=== PATIENT | male | born 1965 | race Caucasian/White ===

== ENCOUNTER 2019-08-31 15:37 | Emergency (ER) | payer BC, OTHER ==
--- NOTE | 2019-08-31 16:03 | EDM.PDOC ---
ED HPI GENERAL MEDICAL PROBLEM - General Chief Complaint: Gastrointestinal Problem Stated Complaint: BLOOD IN STOOL Time Seen by Provider: 08/31/19 15:49 Source of Information: Reports: Patient History Limitations: Reports: No Limitations - History of Present Illness INITIAL COMMENTS - FREE TEXT/NARRATIVE: This 54 year old male is admitted to the ED after returning from [facility] 5 days ago with complaints of bloody diarrhea, more than 10 loose bloody stools/day. He complains of weakness. He states that he is able to take in fluids but it "comes right out". He states that the eating conditions along with the water is not always sanitary and believes that he may have got a bus or intestinal parasite. He is here for further evaluation. Onset: Gradual Duration: Day(s): (three days) Location: Reports: Abdomen (lower abdomen) Quality: Reports: Ache, Dull, Sharp Severity: Moderate Improves with: Reports: None Worsens with: Reports: None Context: Reports: Other (The patient just returned from [facility] 5 days ago. He was there for 2 weeks.) abd Pain Score (Numeric/FACES): 5 - Related Data Allergies Allergy/AdvReac Type Severity Reaction Status Date / Time No Known Allergies Allergy Verified 08/31/19 15:52 Home Meds: Home Meds Ondansetron HCl [Zofran] 4 mg PO Q8HR PRN #15 tablet 08/31/19 [Rx] metroNIDAZOLE [Flagyl] 500 mg PO Q8H 7 Days #21 tab 08/31/19 [Rx] ED ROS GENERAL - Review of Systems Review Of Systems: See Below Constitutional: Reports: Weakness, Fatigue, Weight Loss HEENT: Reports: No Symptoms Respiratory: Reports: No Symptoms Cardiovascular: Reports: No Symptoms Endocrine: Reports: No Symptoms GI/Abdominal: Reports: Abdominal Pain, Anorexia, Bloody Stool (for two days. Having more than 10 loose stools/day for two days.), Diarrhea (As noted above.) . Denies: Black Stool, Constipation, Difficulty Swallowing, Flatus, Hematemesis , Hematochezia : Reports: No Symptoms Musculoskeletal: Reports: No Symptoms Skin: Reports: No Symptoms. Denies: Mottled, Pallor, Diaphoresis, Bruising, Pruritis, Rash, Lesions Neurological: Reports: No Symptoms Psychiatric: Reports: No Symptoms ED EXAM, GI/ABD - Physical Exam Exam: See Below Exam Limited By: No Limitations General Appearance: Anxious, Lethargic, Mild Distress Eyes: Bilateral: Normal Appearance, EOMI Ears: Normal External Exam, Normal Canal, Hearing Grossly Normal, Normal TMs Nose: Normal Inspection, Normal Mucosa, No Blood Throat/Mouth: Normal Inspection, Normal Lips, Normal Teeth, Normal Gums, Normal Oropharynx, Normal Voice, No Airway Compromise Head: Atraumatic, Normocephalic Neck: Normal Inspection, Supple, Non-Tender, Full Range of Motion Respiratory/Chest: No Respiratory Distress, Lungs Clear, Normal Breath Sounds, No Accessory Muscle Use, Chest Non-Tender Cardiovascular: Normal Peripheral Pulses, Regular Rate, Rhythm, No Edema, No Gallop, No JVD, No Murmur, No Rub GI/Abdominal Exam: Normal Bowel Sounds (but occasinal hyperactive bowel sounds.) , No Organomegaly, No Distention, No Abnormal Bruit, No Mass, Tender (in the entire lower abdomen.) (Male) Exam: Deferred Rectal (Males) Exam: Normal Rectal Tone, Prostate Normal, Heme + Stool (grossly positive for blood in stool.) Back Exam: Normal Inspection, Full Range of Motion, NT Extremities: Normal Inspection, Normal Range of Motion, Non-Tender, Normal Capillary Refill, No Pedal Edema Neurological: Alert, Oriented, CN II-XII Intact, Normal Cognition, Normal Gait, Normal Reflexes, No Motor/Sensory Deficits Psychiatric: Anxious Skin Exam: Warm, Dry, Pallor (slight pallor is noted.). No: Jaundice, Mottled, Petechiae, Rash Lymphatic: No Adenopathy Course - Vital Signs Text/Narrative:: I discussed with the patient all of his diagnostic test excluding his stool for culture with ova and parasites which he has not been able to have a bowel movement at this time (waited 2 hours). He will be discharged with a Rx for a stool kit with a follow up with the clinic by the nurse. 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 Last Recorded V/S: Last Vital Signs Temp 97.3 F 08/31/19 17:33 Pulse 94 08/31/19 17:33 Resp 15 08/31/19 17:33 BP 143/86 H 08/31/19 17:33 Pulse Ox 92 L 08/31/19 17:33 - Orders/Labs/Meds Orders: Active Orders 24 hr Category Date Time Status OVA & PARASITES BY IMMUNOASSAY [MREF] Stat Lab 08/31/19 16:10 Ordered STOOL CULTURE/SHIGA TOXIN [MREF] Stat Lab 08/31/19 16:10 Ordered Sodium Chloride 0.9% [Normal Saline] 1,000 ml Med 08/31/19 18:41 Active IV .Bolus Medication Orders Sodium Chloride (Normal Saline) 1,000 mls @ 999 mls/hr IV .Bolus ONE Stop: 08/31/19 19:41 Last Admin: 08/31/19 18:42 Dose: 999 mls/hr Labs: Laboratory Tests 08/31/19 08/31/19 08/31/19 Range/Units 16:15 16:15 16:15 WBC 8.15 (4.0-11.0) K/uL RBC 5.10 (4.50-5.90) M/uL Hgb 16.5 (13.0-17.0) g/dL Hct 48.1 (38.0-50.0) % MCV 94.3 (80.0-98.0) fL MCH 32.4 H (27.0-32.0) pg MCHC 34.3 (31.0-37.0) g/dL RDW Std Deviation 47.5 (28.0-62.0) fl RDW Coeff of Ary 14 (11.0-15.0) % Plt Count 237 (150-400) K/uL MPV 9.70 (7.40-12.00) fL Neut % (Auto) 78.7 (48.0-80.0) % Lymph % (Auto) 11.9 L (16.0-40.0) % Carlisle % (Auto) 9.2 (0.0-15.0) % Eos % (Auto) 0.0 (0.0-7.0) % Baso % (Auto) 0.2 (0.0-1.5) % Neut # (Auto) 6.4 H (1.4-5.7) K/uL Lymph # (Auto) 1.0 (0.6-2.4) K/uL Carlisle # (Auto) 0.8 (0.0-0.8) K/uL Eos # (Auto) 0.0 (0.0-0.7) K/uL Baso # (Auto) 0.0 (0.0-0.1) K/uL Nucleated RBC % 0.0 /100WBC Nucleated RBCs # 0 K/uL Lactate 1.6 (0.20-2.00) mmol/L Sodium 139 (136-148) mmol/L Potassium 3.7 (3.5-5.1) mmol/L Chloride 104 (98-107) mmol/L Carbon Dioxide 24.0 (21.0-32.0) mmol/L BUN 15 (7.0-18.0) mg/dL Creatinine 1.4 H (0.8-1.3) mg/dL Est Cr Clr Drug Dosing 61.72 mL/min Estimated GFR (MDRD) 53.2 ml/min Glucose 102 (74-106) mg/dL Calcium 9.3 (8.5-10.1) mg/dL Magnesium 2.1 (1.8-2.4) mg/dL Total Bilirubin 0.2 (0.2-1.0) mg/dL AST 18 (15-37) IU/L ALT 19 (14-63) IU/L Alkaline Phosphatase 85 (46-116) U/L Total Protein 8.1 (6.4-8.2) g/dL Albumin 3.6 (3.4-5.0) g/dL Globulin 4.5 H (2.6-4.0) g/dL Albumin/Globulin Ratio 0.8 L (0.9-1.6) Lipase 125 (73-393) U/L Meds: Medications Generic Name Dose Route Start Last Admin Trade Name Freq PRN Reason Stop Dose Admin Sodium Chloride 1,000 mls @ 999 mls/hr 08/31/19 18:41 08/31/19 18:42 Normal Saline IV 08/31/19 19:41 999 mls/hr .Bolus ONE Administration Discontinued Medications Generic Name Dose Route Start Last Admin Trade Name Freq PRN Reason Stop Dose Admin Metronidazole 500 mg/ Premix 100 mls @ 100 mls/hr 08/31/19 16:12 08/31/19 16: 35 IV 08/31/19 17:11 100 mls/hr ONETIME ONE Administration Sodium Chloride 1,000 mls @ 1,000 mls/hr 08/31/19 16:10 08/31/19 16:34 Normal Saline IV 08/31/19 17:09 1,000 mls/hr .Bolus ONE Administration Iopamidol 100 ml 08/31/19 18:41 Isovue-300 (61%) IVPUSH 08/31/19 18:42 ONETIME STA Iopamidol 100 ml 08/31/19 18:42 08/31/19 18:43 Isovue-370 (76%) IVPUSH 08/31/19 18:43 100 ml ONETIME STA Administration Morphine Sulfate 4 mg 08/31/19 16:14 08/31/19 16:39 Morphine IVPUSH 08/31/19 16:15 4 mg ONETIME ONE Administration Ondansetron HCl 4 mg 08/31/19 16:12 08/31/19 16:39 Zofran IVPUSH 08/31/19 16:13 4 mg ONETIME ONE Administration Departure - Departure Time of Disposition: 19:04 Disposition: Home, Self-Care 01 Condition: Fair Clinical Impression: Enteritis - Discharge Information *PRESCRIPTION DRUG MONITORING PROGRAM REVIEWED*: Yes *COPY OF PRESCRIPTION DRUG MONITORING REPORT IN PATIENT SAUL: Yes Instructions: Diarrhea, Adult, [id number], Gastrointestinal Bleeding, Easy-to -Read, Colitis Referrals: PCP,Not In Area [Primary Care Provider] - Forms: ED Department Discharge Additional Instructions: Take all medications as directed. Follow up with the clinic as given you by the nurse. Drink plenty of clear liquids for the next 24-48 hours. Rest for the next 24 hours. Return to the ED if your condition gets worse or should you have any questions or concerns. The following information is given to patients seen in the emergency department who are being discharged to home. This information is to outline your options for follow-up care. We provide all patients seen in our emergency department with a follow-up referral. The need for follow-up, as well as the timing and circumstances, are variable depending upon the specifics of your emergency department visit. If you don't have a primary care physician on staff, we will provide you with a referral. We always advise you to contact your personal physician following an emergency department visit to inform them of the circumstance of the visit and for follow-up with them and/or the need for any referrals to a consulting specialist. The emergency department will also refer you to a specialist when appropriate. This referral assures that you have the opportunity for follow-up care with a specialist. All of these measure are taken in an effort to provide you with optimal care, which includes your follow-up. Under all circumstances we always encourage you to contact your private physician who remains a resource for coordinating your care. When calling for follow-up care, please make the office aware that this follow-up is from your recent emergency room visit. If for any reason you are refused follow-up, please contact the [facility] Emergency Department at and asked to speak to the emergency department charge nurse. Sepsis Event Note - Focused Exam Vital Signs: Vital Signs Temp Pulse Resp BP Pulse Ox 08/31/19 17:33 97.3 F 94 15 143/86 H 92 L 08/31/19 15:59 96.4 F 110 H 20 143/103 H 94 L Date Exam was Performed: 08/31/19 Time Exam was Performed: 18:58 - My Orders Last 24 Hours: My Active Orders 08/31/19 16:10 OVA & PARASITES BY IMMUNOASSAY [MREF] Stat STOOL CULTURE/SHIGA TOXIN [MREF] Stat 08/31/19 18:41 Sodium Chloride 0.9% [Normal Saline] 1,000 ml IV .Bolus - Assessment/Plan Last 24 Hours: My Active Orders 08/31/19 16:10 OVA & PARASITES BY IMMUNOASSAY [MREF] Stat STOOL CULTURE/SHIGA TOXIN [MREF] Stat 08/31/19 18:41 Sodium Chloride 0.9% [Normal Saline] 1,000 ml IV .Bolus
[2019-08-31] MEDS ORDERED: Sodium Chloride 0.9% 1,000 ML IV ONE ×2 (16:10→18:41)
[2019-08-31] MEDS ORDERED: metroNIDAZOLE/Normal Saline 500 MG in Premix Bag 1 BAG IV ONE (16:12)
[2019-08-31] MEDS ORDERED: Ondansetron 4 MG/2 ML SDV IVPUSH ONE (16:12)
[2019-08-31] MEDS ORDERED: Morphine 4 MG/ML Syringe IVPUSH ONE (16:14)
[2019-08-31 16:45] LABS: POTASSIUM,K 3.7 mmol/L (3.5-5.1)
--- NOTE | 2019-08-31 17:55 | CT ---
CT abdomen and pelvis Technique: Multiple axial sections from above the dome of the diaphragm inferiorly through the pubic symphysis was obtained. Intravenous contrast was utilized. No oral contrast was given which limits bowel evaluation. Comparison: No prior abdominal imaging is available. Findings: Visualized lung bases show nothing acute. Liver contains no focal parenchymal abnormality. Spleen appears within normal limits. Left adrenal gland shows a nonspecific nodule measuring 1.5 cm. Right adrenal gland shows no nodule. Kidneys show symmetric contrast enhancement without hydronephrosis or mass. Pancreas shows no discrete abnormality. Gallbladder shows questionable noncalcified gallstones. Aorta shows no aneurysm. No retroperitoneal adenopathy or mesenteric abnormalities are seen. Appendix is seen which is normal. No pelvic mass or adenopathy is seen. Equivocal bowel wall thickening within the sigmoid colon is seen. Fluid is noted within the colon. No surrounding inflammatory change is appreciated. Impression: 1. Equivocal bowel wall thickening within the sigmoid colon possibly due to a mild colitis. 2. Fluid within the colon compatible with diarrhea. 3. Small 1.5 cm nonspecific left adrenal nodule. Recommend repeat CT study through the adrenal glands in 6 months to confirm stability. This would occur in February,. 4. Questionable non-calcified gallstones. Diagnostic code #3 This report was dictated in [place] Standard Time
[2019-08-31] MEDS ORDERED: Iopamidol 612 MG/ML 100 ML Bottle IVPUSH STA (18:41)
[2019-08-31] MEDS ORDERED: Iopamidol 755 Mg/ML 100 ML Bottle IVPUSH STA (18:42)
== END 2019-08-31 20:00 | disposition home or self-care (01) ==
LOC: MW.ED 15:37
DX: K52.9 Noninfective gastroenteritis and colitis, unspecified (principal)
CPT/HCPCS: 74177; 80053; 83605; 83690; 83735; 85025; 87045; 87046; 87328; 87329; 87899; 96361; 96365; 96375; 99284; J2270; J2405; J3490; J7030; Q9967; 99283